=== PATIENT | female | born 1980 | race Caucasian/White ===

== ENCOUNTER 2017-08-05 16:23 | Emergency (ER) | payer OTHER ==
[~2017-08-05] VITALS: Ht 157.5 cm; Wt 92.3 kg
[~2017-08-05 16:23] MED LIST: OMEP40CA PO; RANI150T85 PO; TRAZ100T29 PO
[2017-08-05 16:26] VITALS: Ht 157.5 cm; Wt 92.3 kg
[2017-08-05] MEDS ORDERED: HYDROCODONE/ACETAMIN 5/325MG TAB PO ONE (16:45)
[2017-08-05] MEDS ORDERED: IBUP-1050 PO (16:45)
[2017-08-05] MEDS ORDERED: OMEP40CA41 PO (16:46)
--- NOTE | 2017-08-05 16:55 | DIAGNOSTIC IMAGING REPORT ---
LEFT ANKLE 3 VIEWS CLINICAL HISTORY: Left ankle pain. Fall one week ago. FINDINGS: 3 views of the left ankle are obtained. No prior studies are available for comparison at the time of dictation. The skeletal structures are well mineralized. No fracture is seen. The ankle mortise is intact. An os trigonum is incidentally noted. There is no joint effusion. Soft tissue swelling is present around the ankle joint. IMPRESSION: Soft tissue swelling with no radiographic evidence of left ankle fracture. Electronically signed by: Dawson Raphael M.D. 08/05/2017 4:54 PM Dictated Date/Time: 08/05/2017 4:52 PM
[2017-08-05 17:29] VITALS: BP 127/61; PULSE 88; TEMP 36.3; O2SAT 96
--- NOTE | 2017-08-06 21:15 | EMERGENCY ROOM VISIT NOTE ---
ED Visit Note First contact with patient: 16:29 Chief Complaint: Left ankle pain. History of Present Illness: Ms. Galicia is a 37-year-old white female who ambulates into the ED complaining of anterior lateral left ankle pain. Patient reports she injured her ankle when she tripped and fell last week. She is not specific on the mechanism of injury. She reports initially she said some mild pain and mild swelling. Now that she is return to work in reports that she is on her feet all day the pain has increased and so has the swelling. Currently she complains of pain around the lateral malleolus and the anterior talus. She describes her pain as a kind of achy and throbbing sensation. With standing she rates her discomfort 7/10. Her pain is nonradiating. Her pain also worsens with inversion and plantarflexion. She is not identified any alleviating factors except for nonweightbearing. She has not been using any medications for pain prior to arrival at the hospital. Associated with the pain she has noted swelling over the lateral malleolus and anterior talus. She denies hip pain, knee pain, lower leg pain, foot pain, leg weakness/numbness /tingling, numbness and tingling of the toes, previous significant injuries or surgeries to the ankle. Review of Systems: As noted above in history of present illness. Past Medical History: Endometriosis, GERD, status post cholecystectomy, partial hysterectomy and left ovary removal. Current Medications: Prilosec, Advil, trazodone. Allergies to Medications: Bactrim. Social History: Patient is currently employed; she feels safe in her home environment; she admits to tobacco and alcohol use. Physical Examination: Vital Signs: Date Time Temp Pulse Resp B/P (MAP) Pulse Ox O2 Delivery O2 Flow Rate FiO2 08/05/17 17:29 36.3 88 16 127/61 96 08/05/17 16:26 36.3 93 16 139/69 96 Room Air GENERAL: 37-year-old female in mild distress due to pain, nontoxic-appearing, afebrile and hemodynamically stable. NEUROLOGICAL: Awake, alert and oriented to person, place and time. Answering questions appropriately and following commands. SKIN: Warm, dry and pink. No soft tissue trauma noted. LEFT LOWER EXTREMITY: No gross bony deformity. No shortening or malrotation. No tenderness over the hip, thigh, knee or lower leg. Mild tenderness over the lateral malleolus and anterior tibialis with mild swelling but no bony deformity , bony crepitus, ecchymosis. No laxity of the ankle ligamentous structures. Full range of motion of the ankle and toes in all movements. Throughout the foot the skin was warm and pink and capillary refill is brisk. She was able to distinguish light sensations through all dermatomes. ED Course: Patient is assessed as noted above. Patient's medication list was reviewed. Patient was given one [place] 5/325 mg tablet by mouth for pain and ice for pain and comfort. Left Ankle X-Rays: Were read by myself and the radiologist showing no acute fractures or dislocations. No joint effusion. Soft tissue swelling was noted and an incidental finding of an os trigonum was noted. Patient was placed in a gel splint and on nonweightbearing crutches. Patient was educated about today's findings and instructed on her treatment plan ; she verbalized understanding and agreement with this plan. Clinical Impression: Left ankle pain. Disposition: Patient discharged home in stable condition; prior to departure she was reassessed and subjectively reported she was feeling much better and rated her discomfort 4/10. Plan: Comfort measures including rest, ice, elevation, splint and crutch use and a pain medication scale of ibuprofen and acetaminophen were discussed with the patient. Patient was encouraged to follow-up with orthopedics if no better in 6-7 days. Patient is encouraged return ED for worsening/uncontrolled pain, uncontrolled swelling, foot weakness/numbness/tingling or any new/concerning symptoms.
== END 2017-08-05 17:30 | disposition home or self-care (01) ==
LOC: C.EDB 16:25 → C.EDD 17:30
DX: M25.572 Pain in left ankle and joints of left foot (principal); K21.9 Gastro-esophageal reflux disease without esophagitis; F17.200 Nicotine dependence, unspecified, uncomplicated

== ENCOUNTER → 2017-11-24 | Outpatient (CLI) | payer OTHER ==
[~2017-11-24] MED LIST changes: +IBUP-1050 PO; -OMEP40CA PO; +OMEP40CA41 PO; -RANI150T85 PO
[2017-11-24 12:21] LABS: BASO % 0.8 %; BASO ABS # 0.05 K/uL (0-0.2); EOS % 1.3 %; EOS ABS # 0.08 K/uL (0-0.5); HEMATOCRIT 40.3 % (37-47); IG# 0.01 K/uL (0.00-0.02); LYMPH % 32.2 %; LYMPH ABS # 1.91 K/uL (1.2-3.4); MEAN CELL VOLUME 87.6 fL (80-100); MEAN CORPUSCULAR HEMOGLOBIN 30.4 pg (25-34); MEAN CORPUSCULAR HGB CONC 34.7 g/dl (32-36); MEAN PLATELET VOLUME 10.6 fL (7.4-10.4); MONO % 6.2 %; MONO ABS # 0.37 K/uL (0.11-0.59); NEUT % 59.3 %; NEUT ABS # 3.52 K/uL (1.4-6.5); PLATELET COUNT 248 K/uL (130-400); RED CELL DISTRIBUTION WIDTH CV 14.2 % (11.5-14.5); RED CELL DISTRIBUTION WIDTH SD 45.6 fL (36.4-46.3); WHITE BLOOD COUNT 5.94 K/uL (4.8-10.8)
[2017-11-24 12:39] LABS: HEMOGLOBIN A1C 5.2 % (4.5-5.6)
[2017-11-24 12:45] LABS: ALBUMIN 3.6 gm/dl (3.4-5.0); ALT/SGPT 30 U/L (12-78); AST/SGOT 21 U/L (15-37); BLOOD UREA NITROGEN 13 mg/dl (7-18); CALCIUM 8.4 mg/dl (8.5-10.1); CARBON DIOXIDE 25 mmol/L (21-32); CHOLESTEROL 157 mg/dl (0-200); CREATININE 0.98 mg/dl (0.60-1.20); GLUCOSE 101 mg/dl (70-99); POTASSIUM 4.1 mmol/L (3.5-5.1); SODIUM 139 mmol/L (136-145)
[2017-11-24 12:55] LABS: ALKALINE PHOSPHATASE 62 U/L (45-117); LDL CHOLESTEROL CALCULATED 71 mg/dl; TOTAL PROTEIN 6.8 gm/dl (6.4-8.2)
== END | disposition home or self-care (01) ==
LOC: C.LABBFT 10:05
PROVIDERS: ATTEND Nurse Practitioner
DX: E78.5 Hyperlipidemia, unspecified (principal); R73.01 Impaired fasting glucose; L65.9 Nonscarring hair loss, unspecified